=== PATIENT | female | born 1945 | race Caucasian/White ===

== ENCOUNTER → 2017-08-09 | Outpatient (CLI) | payer MEDICARE, MEDICAID ==
[~2017-08-09] MED LIST: ASPI81TA94 PO; ATEN-1 PO; CALC300T PO; CALC600T63 PO; CELE-1 PO; CHOL10005 PO; CHON400C PO; EPIN0.3P14 IM; ESCI20TA38 PO; ESOM40CA42 PO; FERR-41 PO; FEX60 PO; GLUC500T13 PO; LACT1TAB19; LEV25 PO; LEVO25TA57 PO; LIS20 PO; LISI-374 PO; MAGN200T8 PO; MULT-1335 PO; MULT1CAP59 PO; OMEP40CA48 PO; OMEP40CA79 PO; PILO5TAB12 PO; PRE20 PO; SERT-181 PO; SIMV-54 PO; THYROXINE; TIO18R; TIO18R IH; TRIA5PAS12 MT; ZIPR60CA7 PO
== END ==
LOC: MERGE 13:39 → LAB 13:39
PROVIDERS: ATTEND Otolaryngology
DX: K14.0 Glossitis (principal); E61.1 Iron deficiency
CPT/HCPCS: 36415; 82607; 82746; 83540; 83550